=== PATIENT | male | born 1930 | race Two or more races ===

== ENCOUNTER 2020-01-16 10:38 | Outpatient (CLI) | payer OTHER ==
[~2020-01-16] VITALS: Ht 162.6 cm; Wt 68.0 kg
== END 2020-01-16 12:10 | disposition home or self-care (01) ==
LOC: OFIC 805 10:38
DX: R09.81 Nasal congestion (principal); J30.89 Other allergic rhinitis; R47.02 Dysphasia; R05 Cough

== ENCOUNTER → 2020-01-25 | Outpatient (CLI) | payer OTHER | END | disposition home or self-care (01) | LOC: RX STUDY 09:12 | DX: R13.19 Other dysphagia (principal) ==